=== PATIENT | female | born 1950 | race Caucasian/White ===

== ENCOUNTER → 2016-10-01 | Outpatient (CLI) | payer OTHER ==
--- NOTE | 2016-10-01 19:09 | DX ---
Foot Minimum 3 Views Right History: Right fifth metatarsal fracture. Z0.9. Comparison: September 11, 2016. Findings: Transverse fracture involving the right fifth metatarsal proximal metaphyseal region demons trates increasing callus formation with early partial bony fusion. Fracture line remains partially ev ident. Satisfactory alignment. No additional fractures noted. Small plantar and dorsal calcaneal spur s. IMPRESSION: Subacute right fifth metatarsal proximal fracture with early callus formation.
--- NOTE | 2016-10-01 19:10 | DX ---
Foot Minimum 3 Views Left History: Left bunionectomy. Comparison: August 2016. Findings: Oblique osteotomies of the left first metatarsal mid diaphyseal shaft with 2 screws noted. Suggestion of increasing callus formation although fracture osteotomy line remains partially visualiz ed. Satisfactory alignment. On the lateral view there is dorsal soft tissue swelling with distal oste otomy fragment extending ventrally at least 6 mm. Both screws also extend into the plantar fascia 7 m m on the proximal screw and 2 mm on the distal screw. No evidence of acute fractures. Plantar calcaneal spur. IMPRESSION: Subacute left first metatarsal oblique osteotomy with 2 screws extending into the plantar soft tissues, dorsal soft tissue swelling, and distal osteotomy fragment extending ventrally on the lateral view.
== END ==
LOC: CIMAGING 07:36
PROVIDERS: ATTEND Podiatrist Foot & Ankle Surgery
DX: Z09 Encounter for follow-up examination after completed treatment for conditions other than malignant neoplasm (principal); Z98.890 Other specified postprocedural states; S92.351A Displaced fracture of fifth metatarsal bone, right foot, initial encounter for closed fracture; M77.31 Calcaneal spur, right foot
CPT/HCPCS: 73630-PO

== ENCOUNTER → 2016-10-22 | Outpatient (CLI) | payer OTHER ==
--- NOTE | 2016-10-22 09:11 | DX ---
Left foot, 3 views. History: Postop follow-up. Comparison exam: October 01, 2016. Findings: Postsurgical changes of a mid shaft left first metatarsal osteotomy with screw fixation aga in noted. The osteotomy continues to heal, with new bone formation imaging the surgical site. 2 screw s for fixation are unchanged in appearance. On the lateral radiograph, there is a sliver of bone whic h extends dorsally from the proximal screw site into the adjacent soft tissues, unchanged. Also incid entally noted is a moderate size plantar calcaneal spur, stable. Impression: Healing left first metatarsal osteotomy. Plantar calcaneal spur.
--- NOTE | 2016-10-22 09:14 | DX ---
Right foot, 3 views. History: Follow-up fifth metatarsal fracture. Comparison examination: October 01, 2016. Findings: A transverse fracture through the proximal right fifth metatarsal is similar in appearance to previous study, nondisplaced. A small amount of new bone bridges the fracture, with persistence of the fracture line, especially laterally. Alignment remains anatomic. Incidental note of moderate sized plantar and Achilles calcaneal spurs. Impression: Stable right foot radiographs.
== END ==
LOC: CIMAGING 07:44
PROVIDERS: ATTEND Podiatrist Foot & Ankle Surgery
DX: Z09 Encounter for follow-up examination after completed treatment for conditions other than malignant neoplasm (principal); S92.354D Nondisplaced fracture of fifth metatarsal bone, right foot, subsequent encounter for fracture with routine healing; M77.31 Calcaneal spur, right foot; M77.32 Calcaneal spur, left foot; Z98.1 Arthrodesis status; Z98.890 Other specified postprocedural states
CPT/HCPCS: 73630-PO

== ENCOUNTER → 2016-11-26 | Outpatient (CLI) | payer OTHER | LOC: CIMAGING 08:15 → FIMAGING 09:12 | PROVIDERS: ATTEND Podiatrist Foot & Ankle Surgery | DX: Z09 Encounter for follow-up examination after completed treatment for conditions other than malignant neoplasm (principal); S92.354D Nondisplaced fracture of fifth metatarsal bone, right foot, subsequent encounter for fracture with routine healing; M77.31 Calcaneal spur, right foot; M77.32 Calcaneal spur, left foot ==

== ENCOUNTER 2016-12-11 05:56 | Day surgery (SDC) | payer OTHER ==
[2016-12-11] MEDS ORDERED: LIDOCAINE 1% 2 ML INJ ONE (06:25)
[2016-12-11] MEDS ORDERED: ceFAZolin 1 GM/5 ML SYR ONE (06:38)
[2016-12-11] MEDS ORDERED: BUPIVACAINE 0.5% 30 ML SDV ONE (06:38)
[2016-12-11] MEDS ORDERED: LIDOCAINE 2% 5 ML SDV ONE ×3 (06:40→06:58)
[2016-12-11] MEDS ORDERED: MIDAZOLAM 2 MG/2 ML VIAL ONE (06:58)
[2016-12-11] MEDS ORDERED: fentaNYL 100 MCG/2 ML INJ ONE (06:58)
[2016-12-11] MEDS ORDERED: PROPOFOL/EMULSION 500 MG/50 ML BOTTLE IV ONE (06:59)
[2016-12-11] MEDS ORDERED: CEFAZOLIN 1 GM/DEXTROSE/50 ML BAG IV ONE (07:20)
[2016-12-11] MEDS ORDERED: CHLORHEXIDINE GLUC HIBICLENS 118 ML BTL TP ONE (07:30)
[2016-12-11] MEDS ORDERED: DEXAMETHASONE 4 MG/ML VIAL ONE (07:41)
[2016-12-11] MEDS ORDERED: PHENYLEPHRINE HCL 100 MCG/ML SYR ONE (07:51)
[2016-12-11] MEDS ORDERED: epHEDrine SULFATE 10 MG/ML SYR ONE (07:58)
[2016-12-11] MEDS ORDERED: DEXAMETHASONE 4 MG/ML VIAL IVP ONE (09:00)
--- NOTE | 2016-12-11 09:27 | GOP ---
[f rep st] OPERATIVE REPORT DATE OF OPERATION: 12/11/2016 SURGEON: Kassy Song DPM ANESTHESIA: Local with monitored anesthesia care. ANESTHESIOLOGIST: Dr. Coombs. PREOPERATIVE DIAGNOSIS: 1. Left foot 1st metatarsal retained hardware. 2. Left foot 1st metatarsal exostosis. 3. Left 1st metatarsal phalangeal joint adhesive capsulitis. POSTOPERATIVE DIAGNOSIS: 1. Left foot 1st metatarsal retained hardware. 2. Left foot 1st metatarsal exostosis. 3. Left 1st metatarsal phalangeal joint adhesive capsulitis. PROCEDURE PERFORMED: 1. Left foot 1st metatarsal hardware removal. 2. Left foot 1st metatarsal exostectomy. 3. Left 1st metatarsophalangeal joint cheilectomy. FINDINGS: ESTIMATED BLOOD LOSS: Minimal. DESCRIPTION OF PROCEDURE: Under mild sedation, the patient was brought into the operating room, karlene ashley on the operating table in the supine position. Following IV sedation, local anesthesia was obta ined about the left foot using 5 cc of 2% lidocaine plain and 15 cc of 0.5% Marcaine plain. The christi t was then scrubbed, prepped, and draped in the usual aseptic manner. A sterile pneumatic ankle sana rniquet was placed about the left ankle. The foot was exsanguinated and tourniquet inflated to 250 mmHg. Attention was then directed to the left foot 1st metatarsophalangeal joint where an incision was made along the previous scar. The incision was deepened down to the level of the 1st metatarsop halangeal joint. The periosteum and capsule were reflected medially and laterally to expose the 1st metatarsal head at the operative site. A Spear elevator was used to free the scar tissue from the sc rew heads. The 2.7 Synthes screwdriver was used to remove these screws from the 1st metatarsal. Th ey were found to be loose. Once the screws were removed the wound was irrigated with copious steril e saline Ancef irrigation. The dorsal exostosis from the 1st metatarsal was then removed using an o steotome and mallet and freed from the soft tissue. All rough edges were smoothed with a rasp. The wound was again irrigated with copious sterile saline Ancef irrigation. Fluoroscopy was used to en sure all of the exostosis was removed. At this point, attention was then directed distally to the 1 st metatarsophalangeal joint. The adhesions and scar tissue about the joint were then freed up dors ally with sharp dissection and a McGlamry elevator used to free the joint and allow plantar flexion of the joint. The joint was found to have good range of motion at this point. The wound was again irrigated with copious sterile saline Ancef irrigation. Progenix DBM bone putty was then inserted i nto the screw holes. The periosteum and capsule were repaired with 3-0 Vicryl. The subcuticular la geo was repaired with 4-0 Monocryl and the skin a 4 Prolene in a running subcuticular suture techniq ue. 1 cc dexamethasone phosphate was infiltrated about the 1st metacarpophalangeal joint. An addit ional 10 cc of 0.5% Marcaine plain was injected. The incision was dressed with Mastisol, Steri-Stri ps, Xeroform, 4 x 4 gauze, Shanna, Lenin wrap. The tourniquet was deflated at 43 minutes. A prompt hy peremic response was noted to all digits of the left foot. The patient was then transferred to the recovery room with vital signs stable and vascular status in tact. Following a period of postoperative monitoring, the patient will be discharged home. Advised to ice and elevate her foot. She is advised to keep the dressing clean, dry, and intact. She is w eightbearing as tolerated in the walking boot postoperatively. She will follow up with me in 1 week for a dressing change. INJECTABLES: 10 cc of a 1:1 mixture of 0.5% Marcaine plain and 2% lidocaine plain. 20 cc of 0.5% M arcaine plain. 1 cc dexamethasone phosphate, 4 mg/mL. MATERIALS: No new implants were placed. Progenix DBM bone putty was inserted into the screw holes. Two Synthes 2.7 cortical screws were removed from the 1st metatarsal. HEMOSTASIS: Pneumatic ankle tourniquet at 250 mmHg for 43 minutes. /[id number]/MODL
== END 2016-12-11 10:27 | disposition home or self-care (01) ==
LOC: FSGY 05:56
PROVIDERS: ATTEND Podiatrist Foot & Ankle Surgery
PROC: 0QBP0ZZ Excision of Left Metatarsal, Open Approach (ICD-10-PCS; principal; 2016-12-11 07:15)
PROC: 0QP Lower Bones, Removal (ICD-10-PCS; principal; 2016-12-11 07:15)
DX: Z47.89 Encounter for other orthopedic aftercare (principal); M89.272 Other disorders of bone development and growth, left ankle and foot; M77.52 Other enthesopathy of left foot and ankle; E03.9 Hypothyroidism, unspecified; G20 Parkinson's disease
CPT/HCPCS: C1713; J0690; J1100; J2250; J2370; J2704; J3010

== ENCOUNTER → 2016-12-16 | Outpatient (CLI) | payer OTHER | LOC: BMCIMAGING 09:45 | DX: Z12.31 Encounter for screening mammogram for malignant neoplasm of breast (principal); M81.0 Age-related osteoporosis without current pathological fracture | CPT/HCPCS: G0202 ==

== ENCOUNTER → 2017-01-15 | Outpatient (CLI) | payer OTHER | LOC: CIMAGING 15:53 | PROVIDERS: ATTEND Podiatrist Foot & Ankle Surgery | DX: S92.512A Displaced fracture of proximal phalanx of left lesser toe(s), initial encounter for closed fracture (principal); S92.351G Displaced fracture of fifth metatarsal bone, right foot, subsequent encounter for fracture with delayed healing; Z98.890 Other specified postprocedural states | CPT/HCPCS: 73630-PO ==

== ENCOUNTER → 2017-01-24 | Outpatient (CLI) | payer OTHER | LOC: FIMAGING 09:29 | PROVIDERS: ATTEND Orthopaedic Surgery Orthopaedic Surgery of the Spine | DX: M50.322 Other cervical disc degeneration at C5-C6 level (principal); M41.86 Other forms of scoliosis, lumbar region ==

== ENCOUNTER → 2017-01-25 | Outpatient (CLI) | payer OTHER | LOC: CIMAGING 08:56 → EDSTATUS 08:59 → CIMAGING 08:59 | PROVIDERS: ATTEND Family Medicine | DX: Z13.83 Encounter for screening for respiratory disorder NEC (principal); M41.84 Other forms of scoliosis, thoracic region | CPT/HCPCS: 71020-PO ==

== ENCOUNTER → 2017-01-27 | Outpatient (CLI) | payer OTHER | LOC: CIMAGING 08:16 | PROVIDERS: ATTEND Family Medicine | DX: I77.810 Thoracic aortic ectasia (principal); I25.10 Atherosclerotic heart disease of native coronary artery without angina pectoris | CPT/HCPCS: 71250-PO ==

== ENCOUNTER 2017-04-27 05:39 | Day surgery (SDC) | payer OTHER ==
--- NOTE | 2017-04-26 16:15 | GHP ---
[f rep st] PREOP HISTORY AND PHYSICAL DATE OF ADMISSION: 04/27/2017 HISTORY: The patient is a pleasant 67-year-old, right-hand dominant woman well known to my practice . For 2 years, she has had left-sided neck pain as well as left upper extremity pain. She had unde rgone a left ulnar nerve surgery back in 2014, which unfortunately did not give her any symptomatic relief. 50% of her symptoms are referable to left-sided neck pain and 50% are referable to left upp er extremity pain. On exam, the patient has been found to have some weakness in her left triceps an d interossei and decreased sensation in the left ring finger. She also is tender along the left med ial border of the scapula and the paraspinal cervical muscles. On MRI, she was found to have modera te degenerative disk disease and moderate central stenosis and left foraminal stenosis at C5-6. The patient has tried physical therapy, anti-inflammatories, Neurontin, Medrol Dosepak, and epidural st eroid injection in the cervical spine without any significant relief. She has elected to undergo a C5-C6 anterior diskectomy, fusion with instrumentation. The patient denies any loss of bowel or meka dder control. On a visual analog scale of 1-10, her daily pain is an 8. SOCIAL HISTORY: The patient is a retired teacher. She denies tobacco. She uses alcohol occasional ly. FAMILY HISTORY: Significant for cancer. PAST MEDICAL HISTORY: Parkinson disease, hypercholesterolemia, hypothyroidism. PAST SURGICAL HISTORY: Patient has had 4 prior lumbar surgeries. She has also had a stabilization surgery for a left shoulder dislocation. Recently, she has also had a left 2nd digit hammertoe repa ir and a previous left ulnar nerve surgery. She has also had a left bunionectomy. DRUG ALLERGIES: Sulfa. MEDICATIONS: Clonazepam, simvastatin, Celexa, Synthroid, Azilect. PHYSICAL EXAMINATION: VITAL SIGNS: Blood pressure is 132/82. GENERAL: Patient is alert and orien jeison x3. CARDIAC: Regular rate and rhythm without detectable murmur, rub, or gallop. LUNGS: Clear to auscultation. NEUROLOGIC: Patient does have a resting tremor indicative of her Parkinson disea se. Gait is normal. Strength of bilateral upper extremities is 5/5 throughout with the exception o f the left triceps is 4+/5 and left interossei are 4+/5. Light touch is diminished in the left ring finger. Spurling test is positive on the left. She is tender along the paraspinal cervical muscle s on the left at about C6-7. She is also tender along the medial, proximal, and distal aspect of th e scapula. RADIOGRAPHIC STUDIES: X-rays and MRIs were reviewed. The patient has moderate degenerative disk di sease at C5-6. She has a central and left-sided foraminal stenosis as well. There is no myelomalac ia. IMPRESSION: 1. Left C7 radiculopathy. 2. Moderate degenerative disk disease and central stenosis C5-6. PLAN: The patient will undergo a C5-6 anterior diskectomy, fusion with instrumentation. Potential risks, benefits, and possible complications have been thoroughly discussed with the patient includin g, but not limited to, dural tear with CSF leak, meningitis, nerve root injury, partial or complete paralysis, infection, Lefty syndrome, dysphagia, hematoma, aphonia, lack of improvement of symptoma tology, as well as nonunion and need for further surgery, DVT, PE, pneumonia, stroke, heart attack, hemorrhage, blindness, and . The patient's questions have been answered thoroughly. She will be n.p.o. after midnight tonight. She will be admitted for 23-hour observation postoperatively. Copy requested to: Presurgery Testing /[id number]/MODL
[2017-04-27] MEDS ORDERED: LIDOCAINE 1% 2 ML INJ ONE (06:03)
[2017-04-27] MEDS ORDERED: LIDOCAINE 1% 2 ML INJ ID PRN (06:06)
[2017-04-27] MEDS ORDERED: LR 1,000 ML IV ONE (06:06)
[2017-04-27] MEDS ORDERED: THROMBIN (BOVINE) 20,000 UNIT VIAL TP ONE (06:43)
[2017-04-27] MEDS ORDERED: BACITRACIN 50,000 UNITS/10 ML SYR IRR ONE ×2 (06:44→09:11)
[2017-04-27] MEDS ORDERED: AVITENE POWDER 1 GM JAR TP ONE (06:44)
[2017-04-27] MEDS ORDERED: CEFAZOLIN 2 GM/DEXTROSE/100 ML BAG IV ONE (06:53)
[2017-04-27] MEDS ORDERED: MIDAZOLAM 2 MG/2 ML VIAL IVP ONE (06:55)
[2017-04-27] MEDS ORDERED: MIDAZOLAM 2 MG/2 ML VIAL ONE (07:00)
[2017-04-27] MEDS ORDERED: ceFAZolin 2 GM/DEXTROSE 100 ML IV ONE (07:00)
--- NOTE | 2017-04-27 07:00 | PDANEPAE ---
ANE History of Present Illness C5-6 ACDF ANE Past Medical History - Cardiovascular History Hx Hypertension: No Hx Arrhythmias: No Hx Chest Pain: No Hx Coronary Artery / Peripheral Vascular Disease: No Hx CHF / Valvular Disease: No Hx Palpitations: No - Pulmonary History Hx COPD: No Hx Asthma/Reactive Airway Disease: No Hx Recent Upper Respiratory Infection: No Hx Oxygen in Use at Home: No Hx Sleep Apnea: No Sleep Apnea Screening Result - Last Documented: Negative - Neurologic History Hx Cerebrovascular Accident: No Hx Seizures: No Hx Dementia: No Neurologic History Comment: parkinsons diagnosed 10/2014. sciatica to left leg from fusion. hx of lumbar fusion - Endocrine History Hx Diabetes: No Endocrine History Comment: hypothyroidism - Renal History Hx Renal Disorders: No - Liver History Hx Hepatic Disorders: No - Neurological & Psychiatric Hx Hx Neurological and Psychiatric Disorders: Yes Neurological / Psychiatric History Comment: depression - Cancer History Hx Cancer: No - Congenital Disorder History Hx Congenital Disorders: No - GI History Hx Gastrointestinal Disorders: No - Other Health History Other Health History: wears glasses - Chronic Pain History Chronic Pain: Yes (neck) - Surgical History Prior Surgeries: 02/15/17 left hammer toe repair at [facility]. left foot hardware removal with Song. 07/2016 ulnar nerve release left arm. 06/2016 original left foot surgery. bilateral rtc repairs. lumbar fusion l4-5. ANE Review of Systems - Exercise capacity METS (RN): 4 METS ANE Patient History - Allergies Allergies/Adverse Reactions: Sulfa (Sulfonamide Antibiotics) Allergy (Verified 04/12/17 10:56) - Home Medications Home Medications: Citalopram Hydrobromide [celeXA 10 MG] 12/11/16 [Last Taken 04/26/17 19:30] Levothyroxine [Synthroid 100 mcg (*)] 12/11/16 [Last Taken 04/27/17 02:00] Rasagiline Mesylate [Azilect] 12/11/16 [Last Taken 04/27/17 04:00] Simvastatin 12/11/16 [Last Taken 04/26/17 19:30] Mirapex 04/12/17 [Last Taken 04/27/17 04:00] - NPO status NPO Since - Liquids (Date): 04/26/17 NPO Since - Liquids (Time): 19:30 NPO Since - Solids (Date): 04/26/17 NPO Since - Solids (Time): 18:00 - Smoking Hx Smoking Status: Never smoked - Family Anes Hx Family Hx Anesthesia Complications: none ANE Labs/Vital Signs - Vital Signs Blood Pressure: 154/87 Heart Rate: 72 Respiratory Rate: 16 O2 Sat (%): 97 Height: 160.02 cm Weight: 53.524 kg ANE Physical Exam - Airway Neck exam: FROM Mallampati Score: Class 2 Mouth exam: normal dental/mouth exam - Pulmonary Pulmonary: clear to auscultation - Cardiovascular Cardiovascular: regular rate and rhythym - ASA Status ASA Status: II ANE Anesthesia Plan Anesthesia Plan: general endotracheal anesthesia
[2017-04-27] MEDS ORDERED: REMIFENTANIL HCL 1 MG VIAL ONE ×5 (07:03→07:04)
[2017-04-27] MEDS ORDERED: PROPOFOL/EMULSION 500 MG/50 ML BOTTLE IV ONE ×3 (07:03)
[2017-04-27] MEDS ORDERED: LIDOCAINE 2% 5 ML SDV ONE (07:06)
[2017-04-27] MEDS ORDERED: HYDROmorphONE/DILAUDID 2 MG/ML INJ ONE (07:14)
[2017-04-27] MEDS ORDERED: SUCCINYLCHOLINE CHLORIDE*ANESTHESIA ONLY*200 MG/10 ML SYR IVP ONE (07:14)
--- NOTE | 2017-04-27 07:25 | PDHPUP ---
History & Physical Update H&P update statement: This history and physical update is based on an assessment of the patient which was completed after admission or registration (within 24 hours), but prior to the surgery/procedure. H&P update: H&P reviewed & patient examined, no change in patient's condition since H&P completed
[2017-04-27] MEDS ORDERED: RANITIDINE 50 MG/2 ML VIAL ONE (08:22)
[2017-04-27] MEDS ORDERED: ONDANSETRON 4 MG/2 ML VIAL ONE (08:23)
[2017-04-27] MEDS ORDERED: DEXAMETHASONE 4 MG/ML VIAL ONE (08:23)
[2017-04-27] MEDS ORDERED: ONDANSETRON 4 MG/2 ML VIAL IVP PRN (09:10)
[2017-04-27] MEDS ORDERED: HYDROmorphONE/DILAUDID 1 MG/ML SYR IVP PRN (09:10)
[2017-04-27] MEDS ORDERED: OXYCODONE/APAP 5/325 TAB PO PRN (09:10)
[2017-04-27] MEDS ORDERED: NALOXONE HCL 0.4 MG/ML INJ IVP PRN (09:10)
[2017-04-27] MEDS ORDERED: ACETAMINOPHEN 500 MG TAB PO PRN (09:10)
[2017-04-27] MEDS ORDERED: fentaNYL 100 MCG/2 ML INJ IVP PRN ×2 (09:10)
[2017-04-27] MEDS ORDERED: ceFAZolin 1 GM VIAL ONE (09:33)
--- NOTE | 2017-04-27 09:38 | POSTOPPROG ---
Post Op Note Date of Operation: 04/27/17 Surgeon: Jaqueline Hobbs Construction Checker: Alexandrea Deluca SA Anesthesiologist: Franck Mercedes DO Anesthesia: GET(General Endotracheal) Pre-op Diagnosis: C5-6 stenosis and DDD Post-op Diagnosis: same Indication: Left upper extremity pain Procedure: C5-6 ACDF/I Findings: moderate stenosis C5-6 Inf/Abcess present in the surg proc area at time of surgery?: No Depth: Deep Incisional (Fascial) EBL: 50 cc Total fluids administered: 600 cc Complications: none. No changes in SSEPs, MEPs, EMGs
[2017-04-27 10:14] VITALS: PULSE 83
[2017-04-27 10:34] VITALS: RESP 18
[2017-04-27 10:38] VITALS: TEMP 98.1
[2017-04-27 11:20] VITALS: BP 138/80
[2017-04-27 11:42] VITALS: O2SAT 92
--- NOTE | 2017-04-27 13:22 | GOP ---
[f rep st] OPERATIVE REPORT DATE OF OPERATION: 04/27/2017 SURGEON: Jaqueline Melton MD MECHANISM ASSEMBLER: Bart Deluca SA. ANESTHESIA: General endotracheal intubation. ANESTHESIOLOGIST: Asif Mercedes DO. PREOPERATIVE DIAGNOSIS: 1. C5-6 moderate degenerative disk disease. 2. C5-6 moderate central stenosis and left-sided foraminal stenosis. 3. Left upper extremity radiculopathy. POSTOPERATIVE DIAGNOSIS: 1. C5-6 moderate degenerative disk disease. 2. C5-6 moderate central stenosis and left-sided foraminal stenosis. 3. Left upper extremity radiculopathy. PROCEDURE PERFORMED: C5-6 anterior diskectomy, decompression, foraminotomies, anterior fusion with PEEK cage, and anterior instrumentation with Spinal Elements Sapphire plate and screws. FINDINGS: Moderate degenerative disk disease, moderate left and mild right foraminal stenosis, and moderate central stenosis C5-6. ESTIMATED BLOOD LOSS: 50 cc. INDICATIONS: The patient is a pleasant 67-year-old, right-hand dominant woman well known to my prac ryland. She has had a couple year history of left-sided neck pain and left upper extremity pain. She has undergone an ulnar nerve surgery on the left. A couple of years ago without any improvement in her symptoms have worsened since then. On exam, she was found to have left upper extremity weaknes s and decreased sensation. MRI showed moderate degenerative disk disease and stenosis centrally as well as in the left foramen at C5-6. The patient has elected to undergo surgery as she has tried nu merous nonoperative treatments including epidural steroid injections, physical therapy, and anti-inf lammatories. No guarantees were given in regard to surgical outcome. Potential risks, benefits, po ssible complications have been thoroughly discussed including but not limited to, dural tear with CS F leak, meningitis, nerve root injury, partial or complete paralysis, infection, need for further coreas rgery, Lefty syndrome, dysphagia, aphonia, nonunion, breakage or pullout of internal fixation, lack of improvement in symptomatology, DVT, PE, pneumonia, stroke, heart attack, hemorrhage, blindness, and . Patient's questions were answered thoroughly preoperatively. DESCRIPTION OF PROCEDURE: After obtaining both written and verbal consent from the patient, she was brought to the operating room where she underwent a general endotracheal intubation. Patient had a Mota placed sterilely by the circulating nurse. Two grams of Ancef was given IV. Patient was pos itioned with her head and neck in mild extension onto a Escobar head rest. A lateral x-ray was obt ained for localization. The neck anteriorly was prepped and draped in the normal sterile fashion. A timeout was performed with the entire operating room team, confirming patient's name, date of karsten h, planned surgical procedure including levels, antibiotics given, allergies to medications, and pro cedure. After a sterile prep and drape, a left-sided transverse incision was made through skin, subcutaneous tissues including the platysma at C5-6 anteriorly. The deep cervical fascia was incised along the medial border of the sternocleidomastoid muscle. A medium clip icu registered nurse and 2-0 silk ties were used to tie off branches of the anterior branch of the external jugular vein. It should be noted that so matosensory-evoked potentials, motor-evoked potentials, and EMGs were being provided throughout the entire surgery, and baseline potentials were good and normal. The carotid sheath and its contents w ere identified. Dissection was carried out medial to those structures. The trachea and the esophag us were gently retracted toward the midline. The pretracheal and prevertebral fascia were bluntly d issected. The anterior aspect of the cervical spine was identified. Based on anatomic landmarks, a bent spinal needle was placed at a disk space presumed to be C5-6, and a lateral fluoroscopic x-ray confirmed localization of C5-6. The bent spinal needle was removed. The operating microscope was brought in for further visualization. The longus coli muscles were elevated using Bovie cautery. T he anterior longitudinal ligament was taken down also with Bovie cautery at C5 and C6. 12 mm [place] pins were placed, 1 at C5 and 1 at C6. The patient was noted to have probable osteopenia or osteop orosis based on feel of placement of the [place] pins. Very minimal distraction was placed. Under t he microscope, a 15-blade knife was used to create an annulotomy at the disk which was moderately de generative. There was a small anterior osteophyte that was taken down with a 5 mm round bur. A 2-0 curved curette was used to decorticate the vertebral endplates, and the disk was removed via piecem eal using a pituitary rongeur. The posterior longitudinal ligament which was hypertrophied was take n down with a 2 mm Kerrison. Undercutting was performed. The posterior longitudinal ligament was c ompletely removed which was causing moderate stenosis of the central canal. Foraminotomies were per formed, and patient had left greater than right bilateral foraminal stenosis which was moderate on t he left and mild on the right. These were fully decompressed. A micro nerve hook was used to palpa te into the neural foramen which showed no further compressive pathology of the exiting C6 nerve darnell ts. Local bone graft was saved using a 5 mm round bur to decorticate the vertebral endplates. Care was taken to protect the spinal cord at all times. There were no changes in spinal cord monitoring . At this time, a 5 mm barrel-shaped bur was then used to create parallel endplates, and then trial s were utilized from the Spinal Elements Sapphire plate system. A 9 mm trial had the best fit, and therefore, a 16 x 13 x 9 mm lordosed titanium coated Crystal PEEK cage was chosen of that size and p acked with local autogenous bone graft that had been saved as well as demineralized bone matrix. Th en under direct visualization using an scale tank operator, the PEEK cage was tamped into position at C5-6. A 5 mm round bur was then used to contour the anterior aspect of the PEEK cage to allow a plate to fit well. A 17 mm length titanium spinal element Sapphire plate was chosen, contoured into cervical lo rdosis, and placed under direct visualization using 2 screws at C5 and 2 at C6. All screws were 4 m m in diameter and 12 mm in length with good purchase, but as I mentioned, the patient did seem to younger ve osteopenia or osteoporosis. The interlocking screw was tightened via the final demographer. An AP and lateral fluoroscopic views showed good position of internal fixation at C5-C6. The screws were of appropriate length, and the bone graft was in good position at C5-6. The wound was thoroughly e xplored under loupe magnification. Hemostasis was obtained with bipolar cautery, thrombin-soaked Ge lfoam, and bone wax. There was no evidence of bleeding prior to closure. The trachea and esophagus were inspected and found to be in excellent condition, as well as the carotid sheath, its contents, and the spinal cord. The wound was then closed using a 2-0 undyed Vicryl in an interrupted fashion in the platysma loosely. Then, the skin was closed using a 4-0 Prolene in a subcuticular running f ashion. Steri-Strips were applied. Sterile dressing was placed. Soft cervical collar was placed. Mota catheter was removed. Patient was extubated in the operating room and brought to the recover y room in satisfactory condition. IMPLANTS: Spinal Elements Sapphire plate and screws and Crystal PEEK Ti-Patterson cage C5-6. There were no changes in spinal cord monitoring. DRAINS: None. POSTOPERATIVE PLAN: Close neurologic observation, close airway observation, and discharged to home pending successful recovery in the recovery room. /[id number]/MODL
== END 2017-04-27 11:41 | disposition home or self-care (01) ==
LOC: FSGY 05:39
PROVIDERS: ATTEND Orthopaedic Surgery Orthopaedic Surgery of the Spine
PROC: 0RB30ZZ Excision of Cervical Vertebral Disc, Open Approach (ICD-10-PCS; principal; 2017-04-27 07:15)
PROC: 0PH304Z Insertion of Internal Fixation Device into Cervical Vertebra, Open Approach (ICD-10-PCS; principal; 2017-04-27 07:15)
PROC: 0RG10A0 Fusion of Cervical Vertebral Joint with Interbody Fusion Device, Anterior Approach, Anterior Column, Open Approach (ICD-10-PCS; principal; 2017-04-27 07:15)
PROC: 01N10ZZ Release Cervical Nerve, Open Approach (ICD-10-PCS; principal; 2017-04-27 07:15)
DX: M50.122 Cervical disc disorder at C5-C6 level with radiculopathy (principal); M48.02 Spinal stenosis, cervical region; E03.9 Hypothyroidism, unspecified; E78.00 Pure hypercholesterolemia, unspecified; G20 Parkinson's disease; Z88.2 Allergy status to sulfonamides
CPT/HCPCS: C1713; J0330; J0690; J1100; J1170; J2250; J2405; J2704; J2780

== ENCOUNTER → 2017-05-31 | Outpatient (CLI) | payer OTHER | LOC: CIMAGING 07:07 | PROVIDERS: ATTEND Orthopaedic Surgery Orthopaedic Surgery of the Spine | DX: Z98.1 Arthrodesis status (principal) | CPT/HCPCS: 72040-PO ==

== ENCOUNTER → 2017-08-02 | Outpatient (CLI) | payer OTHER | LOC: CIMAGING 07:42 | PROVIDERS: ATTEND Orthopaedic Surgery Orthopaedic Surgery of the Spine | DX: M96.1 Postlaminectomy syndrome, not elsewhere classified (principal) | CPT/HCPCS: 72040-PO ==

== ENCOUNTER 2017-10-13 11:38 | Outpatient (CLI) | payer OTHER ==
[2017-10-13] MEDS ORDERED: fentaNYL 100 MCG/2 ML INJ IVP PRN (11:52)
[2017-10-13] MEDS ORDERED: NALOXONE HCL 0.4 MG/ML INJ IVP PRN (11:52)
[2017-10-13] MEDS ORDERED: MIDAZOLAM 2 MG/2 ML VIAL IVP PRN (11:52)
[2017-10-13] MEDS ORDERED: FLUMAZENIL 0.5 MG/5 ML MDV IVP PRN (11:52)
[2017-10-13] MEDS ORDERED: NS 1,000 ML IV SCH (12:00)
[2017-10-13 12:35] VITALS: RESP 16
--- NOTE | 2017-10-13 13:03 | PDGENHP ---
History & Physical Chief Complaint: left shoulder pain History of Present Illness: left shoulder pain Pertinent Past, Social, Family History: left elbow surgery and left shoulder surgery and Parkinsons Relevant Physical Exam: lungs CTA; heart RRR with no murmur
--- NOTE | 2017-10-13 13:04 | PDPROPOC ---
Sedation Plan of Care Sedation Plan of Care: vital signs stable, mental status noted, patient educated of risks, benefits, alternatives, patient can tolerate sedation ASA Classification: ASA 1 Mallampati Score: Class 1 Mallampati Reference Image: Patient passed 3-3-2 rule?: Yes
[2017-10-13] MEDS ORDERED: ONDANSETRON 4 MG/2 ML VIAL IVP PRN (14:27)
[2017-10-13] MEDS ORDERED: ACETAMINOPHEN 325 MG TAB PO PRN (14:27)
[2017-10-13 14:34] VITALS: BP 120/68; PULSE 75; O2SAT 93
[2017-10-13 14:51] VITALS: TEMP 98.1
== END 2017-10-13 14:49 | disposition home or self-care (01) ==
LOC: FIMAGING 11:38
DX: Z98.890 Other specified postprocedural states (principal); M75.52 Bursitis of left shoulder; M19.012 Primary osteoarthritis, left shoulder; M24.112 Other articular cartilage disorders, left shoulder
CPT/HCPCS: 73221; J2250; J3010; J2310

== ENCOUNTER → 2017-12-23 | Outpatient (CLI) | payer OTHER | LOC: BMCIMAGING 13:06 | PROVIDERS: ATTEND Family Medicine | DX: Z12.31 Encounter for screening mammogram for malignant neoplasm of breast (principal) ==

== ENCOUNTER → 2017-12-29 | Outpatient (CLI) | payer OTHER | LOC: BMCIMAGING 10:44 | PROVIDERS: ATTEND Surgery | DX: R92.8 Other abnormal and inconclusive findings on diagnostic imaging of breast (principal) ==

== ENCOUNTER → 2018-12-22 | Outpatient (CLI) | payer OTHER | LOC: BMCIMAGING 08:41 | PROVIDERS: ATTEND Family Medicine | DX: Z12.31 Encounter for screening mammogram for malignant neoplasm of breast (principal); M81.0 Age-related osteoporosis without current pathological fracture ==